=== PATIENT | female | born 1930 | race Caucasian/White ===

== ENCOUNTER 2016-10-15 11:23 | Emergency (ER) | payer BC, MEDICARE, OTHER ==
[2016-10-15] MEDS ORDERED: cefTRIAXone 1 GM Vial IVPUSH ONE (11:43)
[2016-10-15] MEDS ORDERED: Diphtheria,Pertussis(Acell),Tetanus Vaccine 0.5 ML Syringe IM ONE (11:44)
[2016-10-15] MEDS ORDERED: Bacitracin/Neomycin/Polymyxin B Oint 0.9 GM U/D Packet ONE (11:46)
--- NOTE | 2016-10-15 11:48 | EDM.PDOC ---
ED HPI GENERAL MEDICAL PROBLEM - General Chief Complaint: Bite:Animal, Insect Stated Complaint: Dog Bite Time Seen by Provider: 10/15/16 11:45 Source of Information: Reports: Patient, EMS History Limitations: Reports: No Limitations - History of Present Illness INITIAL COMMENTS - FREE TEXT/NARRATIVE: Attacked by unprovoked bulldog-neighbors dog. Large linear wound-bite 6 cm on the left anterior lateral anticubital region as well as 1 cm pucture wound with noted subcutaneous fat- 5- .5 cm pucture wounds right posterior calf with 3 cm skin avulsion noted.This lower leg bite was through jeans. Patient reported immediately to ER and law enforcement has been notified. Patient denies LOC or head injury. She recals all events and wanting to protect her head and face. She is not up to date for Tdap. Onset: Today Onset Date: 10/15/16 Onset Time: 11:20 Duration: Minutes: Location: Reports: Upper Extremity, Left, Lower Extremity, Right Quality: Reports: Burning Severity: Moderate Improves with: Reports: Other (Dressing application) Worsens with: Reports: Movement Associated Symptoms: Reports: No Other Symptoms Left Arm Pain Score (Numeric/FACES): 1 - Related Data Allergies Allergy/AdvReac Type Severity Reaction Status Date / Time No Known Allergies Allergy Verified 10/15/16 11:35 Home Meds: Home Meds Levothyroxine Sodium [Levothyroxine Sodium] 1 tab PO DAILY 01/27/15 [History] Mirtazapine [Mirtazapine] 15 mg PO BEDTIME 01/27/15 [History] Denosumab [Prolia] 60 mg SQ Q6M 02/02/16 [History] Valsartan/Hydrochlorothiazide [Valsartan-Hctz 160-12.5 mg Tab] 1 each PO DAILY 08/02/16 [History] atorvaSTATin [Lipitor] 10 mg PO BEDTIME 08/02/16 [History] Past Medical History Cardiovascular History: Reports: Hypertension Respiratory History: Reports: None Musculoskeletal History: Reports: Osteoporosis Endocrine/Metabolic History: Reports: Hypothyroidism ED ROS GENERAL - Review of Systems Review Of Systems: See Below Constitutional: Reports: Weakness, Other (Anxiety) HEENT: Reports: No Symptoms Respiratory: Reports: No Symptoms Cardiovascular: Reports: No Symptoms Endocrine: Reports: No Symptoms GI/Abdominal: Reports: No Symptoms : Reports: No Symptoms Musculoskeletal: Reports: Arm Pain, Leg Pain Skin: Reports: Wound, Other (Large 6 cm annular wound-full thickness noted muscle exposure left anterior anticubital region. Multiple puncture wounds-bite miles x5 and superficial avulsion right posterior calf region.) Neurological: Reports: Weakness Psychiatric: Reports: Anxiety Hematologic/Lymphatic: Reports: No Symptoms Immunologic: Reports: No Symptoms ED EXAM, ANIMAL BITE - Physical Exam Exam: See Below Exam Limited By: No Limitations General Appearance: Alert, Anxious, Moderate Distress Eye Exam: Bilateral Eye: EOMI, PERRL Ears: Normal External Exam Nose: Normal Inspection, Normal Mucosa Throat/Mouth: Normal Inspection, Normal Lips Head: Atraumatic, Normocephalic Neck: Normal Inspection, Supple Respiratory/Chest: No Respiratory Distress Cardiovascular: Normal Peripheral Pulses, Regular Rate, Rhythm Peripheral Pulses: 2+: Dorsalis Pedis (L), Dorsalis Pedis (R) GI/Abdominal: Normal Bowel Sounds (Female) Exam: Deferred Rectal (Female) Exam: Deferred Back Exam: Normal Inspection Extremities: Normal Inspection, Normal Range of Motion Neurological: Alert, Oriented, CN II-XII Intact, Normal Cognition, Normal Gait, Normal Reflexes, No Motor/Sensory Deficits Psychiatric: Normal Affect, Normal Mood, Anxious Skin Exam: Normal Color, Warm/Dry, Other (Large 6 cm wound Left lateral arm at anticubital region-involving subcutaneous tissue and muscle exposure. Dog bites puncture x5 right posterior leg.) Course - Orders/Labs/Meds Orders: Active Orders 24 hr Category Date Time Status Vaccines to be Administered [RC] PER UNIT ROUTINE Care 10/15/16 11:44 Ordered Meds: Medications Discontinued Medications Generic Name Dose Route Start Last Admin Trade Name Rakeshq PRN Reason Stop Dose Admin Ceftriaxone Sodium 1 gm 10/15/16 11:43 Rocephin IVPUSH 10/15/16 11:44 ONETIME ONE Diphtheria/Tetanus/Acell Pertussis 0.5 ml 10/15/16 11:44 Adacel IM 10/15/16 11:45 .ONCE ONE Departure - Departure Time of Disposition: 12:35 Disposition: DC/Tfer to [facility] Clinical Impression: Dog bite of arm, Dog bite, Dog bite of calf - Discharge Information Forms: ED Department Discharge - Problem List & Annotations (1) Dog bite of arm SNOMED Code(s): 879991489 Code(s): S41.159A - OPEN BITE OF UNSPECIFIED UPPER ARM, INITIAL ENCOUNTER; W54.0XXA - BITTEN BY DOG, INITIAL ENCOUNTER Status: Acute Qualifiers: Encounter type: initial encounter (2) Dog bite SNOMED Code(s): 759646957, 442518070 Code(s): W54.0XXA - BITTEN BY DOG, INITIAL ENCOUNTER Status: Acute (3) Dog bite of calf SNOMED Code(s): 511391769 Code(s): S81.859A - OPEN BITE, UNSPECIFIED LOWER LEG, INITIAL ENCOUNTER; W54.0XXA - BITTEN BY DOG, INITIAL ENCOUNTER Status: Acute Qualifiers: Encounter type: initial encounter - My Orders Last 24 Hours: My Active Orders 10/15/16 11:44 Vaccines to be Administered [RC] PER UNIT ROUTINE - Assessment/Plan Last 24 Hours: My Active Orders 10/15/16 11:44 Vaccines to be Administered [RC] PER UNIT ROUTINE Assessment:: Patient requesting transfer to [place] if plastic surgeon available. Patient and family aware of risk and benefits of transfer. Risks of transfer-worsening of condition, automobile crash, . Benefits of transfer specialty care and interventions not provided at this local facility. Risks of nontransfer lack of specialized treatment/interventions,worsening of condition and . Benefits of non transfer: stay in familiar environment and close to home. Patient and family verbalize understanding and agree to transfer. Dog Attack Dogbite Left anterior arm-right posterior calf. Plan: Patient requesting transfer to [place] if plastic surgeon available. Patient and family aware of risk and benefits of transfer. Risks of transfer-worsening of condition, automobile crash, . Benefits of transfer specialty care and interventions not provided at this local facility. Risks of nontransfer lack of specialized treatment/interventions,worsening of condition and . Benefits of non transfer: stay in familiar environment and close to home. Patient and family verbalize understanding and agree to transfer. Assessed in ER. Updated Tdap Rocephin 1 gm IV Saline Lock. Sterile dressing application. Transfer to [place] private car with son. Referral to Plastic Surgeon [facility]. Dr. Cunha agrees to see patient in ER [place]. ER Michael notified and agrees with accepting patient.
[2016-10-15 11:51] VITALS: BP 164/72
[2016-10-15] MEDS ORDERED: Bacitracin/Neomycin/Polymyxin B Oint 0.9 GM U/D Packet TOP ONE (13:09)
== END 2016-10-15 13:00 ==
LOC: CC.ED 11:23
DX: S81.851A Open bite, right lower leg, initial encounter (principal); S41.152A Open bite of left upper arm, initial encounter; I10 Essential (primary) hypertension; E03.9 Hypothyroidism, unspecified; M81.0 Age-related osteoporosis without current pathological fracture; Z79.899 Other long term (current) drug therapy; Z23 Encounter for immunization; W54.0XXA Bitten by dog, initial encounter
CPT/HCPCS: 90471; 90715; 96374; 99284; J0696